=== PATIENT | male | born 1940 | race Caucasian/White ===

== ENCOUNTER → 2020-10-28 14:55 | Outpatient (ROUT) | payer MEDICARE, SELFPAY ==
[2020-10-28 15:03] LABS: Hematocrit 45.2 % (41-53); Hemoglobin 15.1 g/dL (13.5-17.5); Mean Corpuscular HGB Conc 33.3 % (30-36); Mean Corpuscular Hemoglobin 31.4 PG (26-34); Mean Corpuscular Volume 94.2 fL (80-100); Platelet Count 147 X10^3/uL (150-400); Red Blood Cell Count 4.79 X10^6/uL (4.5-5.9); Red Cell Distribution Width 14.3 % (11.6-14.8); White Blood Cell Count 5.8 X10^3/uL (4.5-11.0)
[2020-10-28 15:17] LABS: Alanine Aminotransferase 33 IU/L (<50); Albumin 3.9 g/dL (3.5-5.0); Albumin Globulin Ratio 1.3 (1.0-2.8); Alkaline Phosphatase 66 U/L (38-126); Aspartate Aminotransferase 40 IU/L (17-59); BUN Creatinine Ratio 27.3 (6-22); Bilirubin Total 0.6 mg/dL (0.2-1.3); Blood Urea Nitrogen 27 mg/dL (9-20); Calcium 9.3 mg/dL (8.4-10.2); Carbon Dioxide 33 mmol/L (22-32); Chloride 102 mmol/L (98-107); Estimated Glomerular Filt Rate > 60.0 mL/min (>60); Glucose 85 mg/dL (80-110); HEMOLYSIS < 15 (0-50); Potassium 4.9 mmol/L (3.4-5.1); Sodium 137 mmol/L (137-145); Total Protein 6.9 g/dL (6.3-8.2)
[2020-10-28 15:39] LABS: Creatinine Urine Random 96.3 mg/dL
[2020-10-28 16:03] LABS: Microalbumi Creatinin Ratio Ur 315.6 ug/mg CR (<30); Microalbumin Urine Random 30.4 mg/dL (0-1.6)
[2020-10-28 16:06] LABS: Vitamin B12 > 1000 pg/mL (239-931)
[2020-10-28 16:20] LABS: TSH w/ Reflex to FT4 0.65 uIU/mL (0.47-4.68)
[2020-10-28 17:09] LABS: Neutrophils Absolute Manual 3074 /uL (3000-5900); RBC Morphology Normal Morphology; Total Cells Counted 100
[2020-10-30 10:46] LABS: Immunoglobulin A, Serum 268 mg/dL (61-437); Immunoglobulin G,Serum 1131 mg/dL (603-1613); Immunoglobulin M, Serum 64 mg/dL (15-143)
[2020-10-30 15:08] LABS: Albumin 3.6 g/dL (2.9-4.4); Alpha 1 Globulin 0.2 g/dL (0.0-0.4); Alpha 2 Globulin 0.8 g/dL (0.4-1.0); Beta 1 Globulin 0.9 g/dL (0.7-1.3); Gamma Globulin 1.3 g/dL (0.4-1.8); Protein, Total 6.8 g/dL (6.0-8.5)
== END ==
PROVIDERS: Family Provider Family Medicine; PCP Family Medicine; Visit Provider Internal Medicine
DX: G62.9 Polyneuropathy, unspecified (principal); K59.00 Constipation, unspecified
CPT/HCPCS: 80053; 82043; 82570; 82607; 82784; 84155; 84165; 84443; 85025; 86334

== ENCOUNTER → 2022-04-26 15:41 | Outpatient (CLI) | payer MEDICARE, SELFPAY ==
--- NOTE | 2022-04-26 15:48 | DI.RAD.S_ITS ---
PROCEDURE: XR FINGER LT MIN 2V INDICATIONS: PAIN TECHNIQUE: AP hand, 2 views of the 3rd finger(s) acquired. COMPARISON: None. FINDINGS: Bones: No fractures or dislocations. No suspicious bony lesions. Soft tissues: No suspicious soft tissue calcifications. IMPRESSION: No acute osseous abnormalities. If clinical symptoms persist or clinical suspicion for pathology is high, a repeat examination in 7-10 days, or advanced imaging such as CT or MRI is suggested for further evaluation. Dictated by: Prateek Oliveros M.D. on 04/26/2022 at 16:37 Approved by: Prateek Oliveros M.D. on 04/26/2022 at 16:40
== END ==
PROVIDERS: Family Provider Family Medicine; PCP Internal Medicine; Referring Provider Internal Medicine; Visit Provider Internal Medicine
DX: M79.645 Pain in left finger(s) (principal)
CPT/HCPCS: 73140

== ENCOUNTER 2023-08-14 09:07 | Observation (INO) | payer MEDICARE, SELFPAY ==
[2023-08-14] VITALS (30 sets, daily range): BP systolic 138–190; BP diastolic 67–104; PULSE 54–83; RESP 15–25; TEMP 36.1–37.1; O2SAT 94–99; BMI 23.6; BMI 24.0
--- NOTE | 2023-08-14 09:27 | DI.RAD.S_ITS ---
PROCEDURE: XR CHEST 1V INDICATIONS: COUGH/L SIDED PAIN TECHNIQUE: One view of the chest was acquired. COMPARISON: None. FINDINGS: Surgical changes and devices: None. Lungs and pleura: Small to moderate left pleural effusion with adjacent atelectasis versus consolidation. The right lung is clear. Mediastinum: Mediastinal contours appear normal. Heart size is normal. Bones and chest wall: No suspicious bony lesions. Overlying soft tissues appear unremarkable. IMPRESSION: Small to moderate left pleural effusion with adjacent atelectasis versus consolidation. The right lung is clear. Dictated by: Demario Hussein M.D. on 08/14/2023 at 10:01 Approved by: Demario Hussein M.D. on 08/14/2023 at 10:01
--- NOTE | 2023-08-14 09:29 | ED.URI ---
HPI - URI/Sore Throat General Chief Complaint: Upper Respiratory Symptoms Stated Complaint: per pt pneumonia t-7, not getting better Time Seen by Provider: 08/14/23 09:11 History of Present Illness HPI Narrative: 83-year-old male with history of atrial fibrillation status post Watchman procedure presents by private vehicle from home for left-sided chest pain and nonproductive cough. Patient states that he was diagnosed with pneumonia 1 week ago at the walk-in clinic. He was referred to the ER for a chest x-ray, however he did not want to drive to the ER and instead just took his antibiotics. He states that initially the antibiotics helped with his pain and cough, however they gradually returned and now the cough is persistent, particularly at night. He can not even sleep because of the coughing and is presenting today for repeat evaluation. Related Data Home Medications Medication Instructions Recorded Confirmed ascorbate calcium (vitamin C) PO 08/11/23 08/11/23 [Sirisha-C] aspirin 81 mg chewable tablet 81 mg PO DAILY 08/11/23 08/11/23 [id number] PO 08/11/23 08/11/23 cholecalciferol (vitamin D3) 25 25 mcg PO DAILY 08/11/23 08/11/23 mcg (1,000 unit) capsule clonidine HCl 0.1 mg tablet 0.1 mg PO BID 08/11/23 08/11/23 doxycycline hyclate 100 mg capsule 100 mg PO BID 08/11/23 08/11/23 indapamide 1.25 mg tablet 1.25 mg PO DAILY 08/11/23 08/11/23 magnesium 200 mg tablet 200 mg PO DAILY 08/11/23 08/11/23 multivitamin 1 tab PO DAILY 08/11/23 08/11/23 vitamin B complex 1 tab PO DAILY 08/11/23 08/11/23 Allergies Allergy/AdvReac Type Severity Reaction Status Date / Time hydrochlorothiazide AdvReac Mild Rash Verified 08/11/23 11:18 Review of Systems Review of Systems Narrative: CONSTITUTIONAL- Denies: fever, chills, fatigue HEENT- Denies: sore throat, nosebleed, vision changes RESPIRATORY-reports: Cough Denies: shortness of breath, wheezing CARDIAC-reports: Left-sided pleuritic pain Denies: edema, orthopnea GI- Denies: abdominal pain, nausea, vomiting, constipation, diarrhea - Denies: frequency, dysuria, hematuria, flank pain MSK- Denies: extremity pain, extremity swelling, joint pain, joint swelling SKIN- Denies: rash, itching, burn, swelling NEUROLOGICAL- Denies: headache, numbness, weakness, dizziness PSYCHIATRIC- Denies: anxiety, depression, suicidal ideation, homicidal ideation Patient History Medical History BPH (benign prostatic hyperplasia) Chronic atrial fibrillation Hypertension Pneumonia Surgical History Status post recent transurethral resection of prostate Exam Initial Vital Signs Initial Vital Signs: Vital Signs Pulse Rate 71 08/14/23 09:19 Blood Pressure 166/80 H 08/14/23 09:19 Pulse Oximetry 96 08/14/23 09:19 Const: Awake, alert, no acute distress, nontoxic appearing Eyes: PERRL, EOMI, conjunctiva normal ENT: Atraumatic, dentition normal, mucous membranes moist Cardiac: regular rate, regular rhythm RESP: unlabored, decreased breath sounds left lower lobe GI: Atraumatic, soft, nontender, nondistended, no rebound, no guarding MSK: Atraumatic, full range of motion, pulses equal Skin: Warm, Dry, intact, no rashes Neuro: AO x3, CN II-XII grossly intact, moves all extremities Psych: affect normal, mood normal, not suicidal, not homicidal Course Course Course Narrative: Well-appearing gentleman with persistent cough and left-sided pain despite 1 week antibiotics for pneumonia. Vital signs are reviewed, unremarkable, patient does have decreased breath sounds on the right-hand side. We will obtain labs and chest x-ray imaging. Orders Ordered: ED Orders 08/14/23 09:27 Chest [XR chest 1V] Stat 08/14/23 09:35 CBC Auto Diff [Complete Blood Count AUTO DIFF] Stat CMP [Comprehensive Metabolic Panel] Stat Trop I [Troponin I] Stat 08/14/23 09:46 EKG-12 Lead Stat 08/14/23 09:51 CT angio chest PE protocol Stat 08/14/23 10:07 Respiratory Panel (Film Array) Stat Acetaminophen (Acetaminophen 325 Mg Tablet) 650 mg PO Q6H PRN PRN Reason: Fever/Mild Pain (1-3) Benzonatate (Benzonatate 100 Mg Capsule) 100 mg PO TID PRN PRN Reason: Cough Heparin Sodium/Dextrose (Heparin Drip) 25,000 unit in 500 mls @ 26.127 mls/hr IV CONT KALYN; Protocol Melatonin (Melatonin 3 Mg Tablet) 6 mg PO BEDTIME PRN PRN Reason: Insomnia Naloxone HCl (Naloxone 0.4 Mg/Ml Vial) 0.2 mg IV Q2MIN PRN PRN Reason: Opiate Reversal Polyethylene Glycol (Polyethylene Glycol 3350 17 Gm Powd.Pack) 17 gm PO DAILY PRN PRN Reason: Constipation Sennosides (Sennosides 8.6 Mg Tablet) 8.6 mg PO BID PRN PRN Reason: Constipation Discontinued Medications Ceftriaxone Sodium 2,000 mg/ (Sodium Chloride) 100 mls @ 200 mls/hr IV NOW ONE Stop: 08/14/23 11:18 Last Admin: 08/14/23 11:30 Dose: 200 mls/hr Documented By: NIMA Azithromycin 500 mg/ Dextrose 250 mls @ 250 mls/hr IV NOW ONE Stop: 08/14/23 11:18 Last Admin: 08/14/23 12:18 Dose: 250 mls/hr Documented By: NIMA Reevaluation(s) Reevaluation #1: Laboratory work is reviewed, no significant abnormalities. Chest x-ray shows underlying infiltrate with pleural effusion. Patient denies history of congestive heart failure, he does not take any Lasix or other diuretics. We will order CT angio for better and further assessment. Reevaluation #2: CT angio is concerning for moderate left-sided pleural effusion with left lower lobe segmental and subsegmental pulmonary emboli. Given patient's age and risk factors he is at least moderate risk for adverse reaction. Started on heparin, we will give IV antibiotics, will admit for further treatment. Vital Signs Vital signs: Vital Signs - 8 hr 08/14/23 09:27 08/14/23 09:19 08/14/23 09:19 Temperature 98.7 F Pulse Rate 69 71 Respiratory Rate 18 Blood Pressure 166/80 H 166/80 H Pulse Oximetry 97 96 Oxygen Delivery Method Room Air 08/14/23 09:30 08/14/23 09:30 08/14/23 09:53 Temperature Pulse Rate 63 63 Respiratory Rate 22 Blood Pressure 149/85 H Pulse Oximetry 98 97 Oxygen Delivery Method 08/14/23 09:53 08/14/23 10:00 08/14/23 10:00 Temperature Pulse Rate 63 Respiratory Rate 21 Blood Pressure 146/70 H 141/81 H Pulse Oximetry 97 Oxygen Delivery Method 08/14/23 10:16 08/14/23 10:16 08/14/23 10:30 Temperature Pulse Rate 63 Respiratory Rate 22 Blood Pressure 145/70 H 155/71 H Pulse Oximetry 96 Oxygen Delivery Method 08/14/23 10:30 08/14/23 10:46 08/14/23 10:46 Temperature Pulse Rate 66 62 Respiratory Rate 18 20 Blood Pressure 175/76 H Pulse Oximetry 96 99 Oxygen Delivery Method 08/14/23 11:00 08/14/23 11:00 08/14/23 11:15 Temperature Pulse Rate 63 Respiratory Rate 20 Blood Pressure 138/87 153/85 H Pulse Oximetry 98 Oxygen Delivery Method 08/14/23 11:15 Temperature Pulse Rate 62 Respiratory Rate 25 H Blood Pressure Pulse Oximetry 98 Oxygen Delivery Method MDM - URI/Sore Throat Lab Data 08/14/23 09:35 08/14/23 09:35 Labs: Lab Results 08/14/23 08/14/23 08/14/23 Range/Units 09:35 09:35 09:35 WBC 7.1 (4.5-11.0) X10^3/uL RBC 3.94 L (4.5-5.9) X10^6/uL Hgb 12.1 L (13.5-17.5) g/dL Hct 35.9 L (41-53) % MCV 91.1 (80-100) fL MCH 30.8 (26-34) PG MCHC 33.8 (30-36) % RDW 13.9 (11.6-14.8) % Plt Count 200 (150-400) X10^3/uL Neut % (Auto) 59.1 (50-75) % Lymph % (Auto) 24.2 L (25-40) % [place] % (Auto) 14.3 H (3-14) % Eos % (Auto) 2.0 (2-4) % Baso % (Auto) 0.4 (0-2) % Neut # (Auto) 4200 (4330-8854) /uL Lymph # (Auto) 1700 (1071-3661) /uL [place] # (Auto) 1000 H (0-900) /uL Eos # (Auto) 100 (0-450) /uL Baso # (Auto) 0 (0-100) /uL APTT (26-36) SECONDS Sodium 133 L (137-145) mmol/L Potassium 4.7 (3.4-5.1) mmol/L Chloride 99 (98-107) mmol/L Carbon Dioxide 30 (22-32) mmol/L BUN 24 H (9-20) mg/dL Creatinine 1.12 (0.66-1.25) mg/dL Estimated GFR > 60 (>60) mL/min BUN/Creatinine Ratio 21.4 (6-22) Glucose 99 (80-110) mg/dL Calcium 9.0 (8.4-10.2) mg/dL Magnesium 2.1 (1.6-2.3) mg/dL Total Bilirubin 0.6 (0.2-1.3) mg/dL AST 35 (17-59) IU/L ALT 44 (<50) IU/L Alkaline Phosphatase 73 (38-126) U/L Troponin I < 0.012 (0.01-0.034) ng/mL Total Protein 6.5 (6.3-8.2) g/dL Albumin 3.2 L (3.5-5.0) g/dL Globulin 3.3 (1.7-4.1) g/dL Albumin/Globulin Ratio 1.0 (1.0-2.8) Chlamy pneumoniae PCR (Not Detect) Adenovirus (PCR) (Not Detect) B. pertussis DNA (PCR) (Not Detecte) B.parapertussis DNA PCR (Not Detecte) Coronavirus OC43 (PCR) (Not Detect) Coronavirus HKU1 (PCR) (Not Detect) Coronavirus 229E (PCR) (Not Detect) SARS-CoV-2 (PCR) (Not Detecte) Coronavirus NL63 (PCR) (Not Detect) Human Metapneumovir PCR (Not Detect) Influenza Type A (PCR) (Not Detect) Influenza Type B (PCR) (Not Detect) M. pneumoniae (PCR) (Not Detect) Parainfluenza 1 (PCR) (Not Detect) Parainfluenza 2 (PCR) (Not Detect) Parainfluenza 3 (PCR) (Not Detect) Parainfluenza 4 (PCR) (Not Detect) RSV (PCR) (Not Detect) Entero/Rhino (PCR) (Not Detect) 08/14/23 08/14/23 Range/Units 09:35 10:07 WBC (4.5-11.0) X10^3/uL RBC (4.5-5.9) X10^6/uL Hgb (13.5-17.5) g/dL Hct (41-53) % MCV (80-100) fL MCH (26-34) PG MCHC (30-36) % RDW (11.6-14.8) % Plt Count (150-400) X10^3/uL Neut % (Auto) (50-75) % Lymph % (Auto) (25-40) % [place] % (Auto) (3-14) % Eos % (Auto) (2-4) % Baso % (Auto) (0-2) % Neut # (Auto) (4745-1009) /uL Lymph # (Auto) (7618-6393) /uL [place] # (Auto) (0-900) /uL Eos # (Auto) (0-450) /uL Baso # (Auto) (0-100) /uL APTT 28 (26-36) SECONDS Sodium (137-145) mmol/L Potassium (3.4-5.1) mmol/L Chloride (98-107) mmol/L Carbon Dioxide (22-32) mmol/L BUN (9-20) mg/dL Creatinine (0.66-1.25) mg/dL Estimated GFR (>60) mL/min BUN/Creatinine Ratio (6-22) Glucose (80-110) mg/dL Calcium (8.4-10.2) mg/dL Magnesium (1.6-2.3) mg/dL Total Bilirubin (0.2-1.3) mg/dL AST (17-59) IU/L ALT (<50) IU/L Alkaline Phosphatase (38-126) U/L Troponin I (0.01-0.034) ng/mL Total Protein (6.3-8.2) g/dL Albumin (3.5-5.0) g/dL Globulin (1.7-4.1) g/dL Albumin/Globulin Ratio (1.0-2.8) Chlamy pneumoniae PCR Not detected (Not Detect) Adenovirus (PCR) Not detected (Not Detect) B. pertussis DNA (PCR) Not detected (Not Detecte) B.parapertussis DNA PCR Not detected (Not Detecte) Coronavirus OC43 (PCR) Not detected (Not Detect) Coronavirus HKU1 (PCR) Not detected (Not Detect) Coronavirus 229E (PCR) Not detected (Not Detect) SARS-CoV-2 (PCR) Not detected (Not Detecte) Coronavirus NL63 (PCR) Not detected (Not Detect) Human Metapneumovir PCR Not detected (Not Detect) Influenza Type A (PCR) Not detected (Not Detect) Influenza Type B (PCR) Not detected (Not Detect) M. pneumoniae (PCR) Not detected (Not Detect) Parainfluenza 1 (PCR) Not detected (Not Detect) Parainfluenza 2 (PCR) Not detected (Not Detect) Parainfluenza 3 (PCR) Not detected (Not Detect) Parainfluenza 4 (PCR) Not detected (Not Detect) RSV (PCR) Not detected (Not Detect) Entero/Rhino (PCR) Not detected (Not Detect) ECG Data Interpretation: Atrial fibrillation at a rate of 69 beats per minute. Normal axis, no ST T wave changes, no STEMI Critical Care Time Critical Care Time Critical Care Time: Yes Total Critical Care Time: 32 Attestation: Pulmonary embolism requiring heparin and admission. Pneumonia requiring IV antibiotics Discharge Plan Departure Patient Disposition: Admitted As Inpatient Clinical Impression: Pneumonia, Chronic atrial fibrillation, Pulmonary embolism, Pleural effusion Admit Date/Time: 08/14/23 11:32 Admit Provider: Juma Adams
[2023-08-14 09:51] LABS: Add Manual Diff / Slide Review NO; Basophils Absolute Auto 0 /uL (0-100); Basophils Percent Auto 0.4 % (0-2); Eosinophils Absolute Auto 100 /uL (0-450); Hematocrit 35.9 % (41-53); Hemoglobin 12.1 g/dL (13.5-17.5); Lymphocytes Absolute Auto 1700 /uL (1100-4500); Lymphocytes Percent Auto 24.2 % (25-40); Mean Corpuscular HGB Conc 33.8 % (30-36); Mean Corpuscular Hemoglobin 30.8 PG (26-34); Mean Corpuscular Volume 91.1 fL (80-100); Monocytes Absolute Auto 1000 /uL (0-900); Monocytes Percent Auto 14.3 % (3-14); Neutrophils Absolute Auto 4200 /uL (1500-7000); Neutrophils Percent Auto 59.1 % (50-75); Platelet Count 200 X10^3/uL (150-400); Red Blood Cell Count 3.94 X10^6/uL (4.5-5.9); Red Cell Distribution Width 13.9 % (11.6-14.8); White Blood Cell Count 7.1 X10^3/uL (4.5-11.0)
--- NOTE | 2023-08-14 09:51 | DI.CT.S_ITS ---
PROCEDURE: CT ANGIO CHEST PE PROTOCOL INDICATIONS: PLEURITIC PAIN, ABNORMAL CXR TECHNIQUE: After the administration of intravenous contrast, 2 mm thick sections acquired from the pulmonary apices to the posterior costophrenic angles. 3-dimensional maximum intensity projection (MIP) coronal and sagittal reformats were then acquired through the thorax. For radiation dose reduction, the following was used: automated exposure control, adjustment of mA and/or kV according to patient size. COMPARISON: None. FINDINGS: Image quality: Excellent. Pulmonary arteries: Pulmonary arteries are normal in size. There is a filling defect in a left lower lobe segmental branch (5/74) extending into the subsegmental branches concerning for pulmonary embolism.. Lungs and pleura: Moderate left pleural effusion with adjacent atelectasis. Ground-glass and consolidative opacities within the left lower lobe and posterior left upper lobe. Scattered sub 2 mm pulmonary micro nodules. Scattered calcified granulomas. Central and peripheral airways are patent. Mediastinum: Heart size is mildly enlarged, with trace pericardial effusion. Mitral valve replacement. Moderate left anterior descending coronary artery calcifications. No mediastinal or hilar adenopathy. Thoracic aorta is normal in caliber and enhancement. Atherosclerotic vascular calcifications. Esophagus is normal in caliber, without hiatal hernia. Bones and chest wall: No suspicious bony lesions. Ribs and thoracic spine appear intact throughout. Postsurgical changes in the right scapula. Degenerative changes of the spine. Decreased osseous mineralization. Bilateral gynecomastia. Thyroid gland is unremarkable. No axillary or supraclavicular adenopathy. Abdomen: Subcentimeter hypodensity in the right hepatic lobe is too small technique characterize and favored to represent a simple cyst. Otherwise, visualized upper abdominal solid organs appear normal in the early arterial phase of enhancement. IMPRESSION: 1. Filling defect within a left lower lobe segmental and subsegmental pulmonary arteries, concerning for pulmonary embolism. 2. Moderate left pleural effusion with associated ground-glass and consolidative opacities, consistent with pneumonia. Dictated by: Demario Hussein M.D. on 08/14/2023 at 10:52 Approved by: Demario Hussein M.D. on 08/14/2023 at 11:05
[2023-08-14 10:02] LABS: Alanine Aminotransferase 44 IU/L (<50); Albumin 3.2 g/dL (3.5-5.0); Alkaline Phosphatase 73 U/L (38-126); Aspartate Aminotransferase 35 IU/L (17-59); BUN Creatinine Ratio 21.4 (6-22); Bilirubin Total 0.6 mg/dL (0.2-1.3); Blood Urea Nitrogen 24 mg/dL (9-20); Carbon Dioxide 30 mmol/L (22-32); Chloride 99 mmol/L (98-107); Estimated Glomerular Filt Rate > 60 mL/min (>60); Globulin 3.3 g/dL (1.7-4.1); Glucose 99 mg/dL (80-110); HEMOLYSIS < 15 (0-50); Potassium 4.7 mmol/L (3.4-5.1); Sodium 133 mmol/L (137-145); Total Protein 6.5 g/dL (6.3-8.2)
[2023-08-14 10:13] LABS: Troponin I < 0.012 ng/mL (0.01-0.034)
[2023-08-14 11:00] LABS: Adenovirus Not Detected (Not Detect); B. parapertussis Not Detected (Not Detecte); Bordetella pertussis Not Detected (Not Detecte); Chlamydophila pneumoniae Not Detected (Not Detect); Coronavirus 229E Not Detected (Not Detect); Coronavirus HKU1 Not Detected (Not Detect); Coronavirus NL 63 Not Detected (Not Detect); Coronavirus OC43 Not Detected (Not Detect); Human Metapneumovirus Not Detected (Not Detect); Human Rhinovirus/Enterovirus Not Detected (Not Detect); Influenza A Not Detected (Not Detect); Influenza B Not Detected (Not Detect); Mycoplasma pneumoniae Not Detected (Not Detect); Parainfluenza Virus 1 Not Detected (Not Detect); Parainfluenza Virus 2 Not Detected (Not Detect); Parainfluenza Virus 3 Not Detected (Not Detect); Parainfluenza Virus 4 Not Detected (Not Detect); Respiratory Syncytial Virus Not Detected (Not Detect); SARS- CoV-2 Not Detected (Not Detecte)
[2023-08-14] MEDS: cefTRIAXone 2,000 MG in SODIUM CHLORIDE 0.9% 100 ML 200 MG IV (11:30)
--- NOTE | 2023-08-14 11:48 | DI.ECHO.S_ITS ---
[facility]---------+ [facility] +---------+ : : [address] : : : : [id number] : : : : Phone: [phone] Echocardiogram Report + + :Name: BERT GARY Study Date: 08/14/2023 Height: 69 in : :[facility] ReadingLocation: [place] Weight: 160 lb : : Gender: Male BSA: 1.9 m2 : :: 1940 Age: 83 yrs BP: 163/80 mmHg: :Reason For Study: PE, Look for right heart strain : :Ordering Physician: Bryan, : :Walt Performed By: Chanell Marcos : :Referring: WALT SETHI A : + + Interpretation Summary The ejection fraction is estimated to be 45-50%. Diastolic function could not be accurately assessed due to atrial fibrillation. The left atrium is severely dilated. The right ventricle is normal size. Right ventricular systolic function is mildly reduced. The right atrium is mild to moderately dilated. There is moderate mitral regurgitation. There is mild aortic regurgitation. There is moderate tricuspid regurgitation. The right ventricular systolic pressure is estimated to be at least 54 mmHg based on an estimated right atrial pressure of 8 mm Hg. There is a left-sided pleural effusion. Procedure: A two-dimensional transthoracic echocardiogram with color flow and Doppler was performed. The study quality was technically good. There is no prior echocardiogram noted for this patient. The patient was in atrial fibrillation with heart rates between 49-68 bpm during the exam. Left Ventricle: The left ventricle is normal in size. A false chord is noted (normal variant). There is no thrombus. Left ventricular systolic function is mildly reduced. The ejection fraction is estimated to be 45-50%. Diastolic function could not be accurately assessed due to atrial fibrillation. Right Ventricle: The right ventricle is normal size. Right ventricular systolic function is mildly reduced. Atria: The left atrium is severely dilated. The right atrium is mild to moderately dilated. There is no Doppler evidence for an interatrial shunt. Mitral Valve: The mitral valve leaflets appear mildly thickened, but open well. There is mild mitral annular calcification. There is moderate mitral regurgitation. There is blunted systolic flow noted in the pulmonary vein. Aortic Valve: The aortic valve is trileaflet. The aortic valve opens well. There is mild aortic valve sclerosis. There is no aortic valve stenosis. There is mild aortic regurgitation. Tricuspid Valve: The tricuspid valve leaflets are thickened and/or calcified, but open well. There is moderate tricuspid regurgitation. The regurgitant jet is eccentrically directed. The right ventricular systolic pressure is estimated to be at least 54 mmHg based on an estimated right atrial pressure of 8 mm Hg. Pulmonic Valve: The pulmonic valve leaflets are thin and pliable; valve motion is normal. There is trace pulmonic regurgitation. Great Vessels: The aortic root is normal size. The ascending aorta is at the upper limits of normal in size. The aortic arch is normal in size. The pulmonary artery is normal size. The IVC is dilated (diameter is greater than 2.1 cm) yet it collapses greater than 50% with a sniff. This suggests a right atrial pressure of 8 mm Hg. Pericardium/ Pleura There is no pericardial effusion. There is a left-sided pleural effusion. MMode/2D Measurements & Calculations LVIDd: 4.5 cm LVOT diam: 2.1 cm LVIDs: 3.2 cm Ao root diam: 3.3 cm FS: 29.0 % asc Aorta Diam: 3.5 cm EPSS: 0.55 cm Ao Arch Diam (Prox Trans): 2.6 cm IVSd: 1.1 cm LVPWd: 1.1 cm LV frank. diameter/BSA (cm/m^2): 2.4 LV sys. diameter/BSA (cm/m^2): 1.7 LA A2 area: 34.9 cm2 RA long axis: 6.1 cm LA A4 area: 38.9 cm2 RA area: 20.7 cm2 LA length (vol): 8.3 cm RA vol: 60.1 ml LA vol: 138.5 ml RA : 32.0 ml/m2 LA vol index: 73.7 ml/m2 IVC diam: 2.2 cm TAPSE: 1.5 cm Doppler Measurements & Calculations Ao V2 max: 120.2 cm/sec LVOT Max Luke: 90.3 cm/sec Ao V2 mean: 88.6 cm/sec LV V1 max P.3 mmHg Ao max P.8 mmHg LV V1 VTI: 18.1 cm Ao mean P.4 mmHg BON(I,D): 2.7 cm2 Ao V2 VTI: 23.4 cm BON(V,D): 2.6 cm2 sev ratio: 0.77 BON indexed to BSA (cm^2/m^2): 1.4 AI P1/2t: 608.7 msec AI dec slope: 215.6 cm/sec2 MV E max luke: 86.3 cm/sec TR max luke: 337.3 cm/sec Med Peak E' Luke: 6.4 cm/sec TR max P.5 mmHg E/E' med: 13.5 PA V2 max: 53.8 cm/sec Lat Peak E' Luke: 11.3 cm/sec PA V2 mean: 40.1 cm/sec E/E' lat: 7.6 PA mean P.70 mmHg E/e' average: 10.6 PA Accel Time: 0.07 sec MR ERO: 0.05 cm2 MR VTI: 208.2 cm MR PISA: 0.82 cm2 MR flow rate: 30.2 cm3/sec MR PISA radius: 0.36 cm SV(LVOT): 63.5 ml Reading Physician:04:46 PM
[2023-08-14 11:59] LABS: PTT Partial Thromboplastin Tim 28 SECONDS (26-36)
[2023-08-14 12:03] LABS: Magnesium 2.1 mg/dL (1.6-2.3)
[2023-08-14] MEDS: AZITHROMYCIN 500 MG in DEXTROSE 5% IN WATER 250 ML 250 MG IV (12:18)
[2023-08-14 12:21] LABS: Procalcitonin 0.11 ng/mL (<0.5)
--- NOTE | 2023-08-14 12:23 | PC.NURSE ---
PTT order added at 1150, lab added PTT test onto blood draw from 0935. PTT resulted at 1220. sheet metal technician is at the bedside. Holding heparin administration until echo is completed, per ED physician.
--- NOTE | 2023-08-14 13:26 | PC.NURSE ---
avionics systems technician in pt room [id number]. Report given face to face w/ Desiree OWUSU.
[2023-08-14 13:37] LABS: Appearance Urine UA CLEAR; Bilirubin Urine UA NEGATIVE (NEGATIVE); Color Urine UA YELLOW; Glucose Urine UA NEGATIVE (Negative); Ketones Urine UA NEGATIVE (NEGATIVE); Leukocyte Esterase Urine UA NEGATIVE (NEGATIVE); Nitrite Urine UA NEGATIVE (Negative); Occult Blood Urine UA NEGATIVE (Negative); Protein Urine UA NEGATIVE (Negative); Urobilinogen Urine UA 0.2 E.U./dL (0.2); pH Urine UA 7.5 (4.5-8.0)
[2023-08-14 13:50] LABS: Bacteria Urine None Seen; Culture Indicated Urine Cult Not Indicated; RBC Urine None Seen (0-5/HPF); Squamous Epithelial Cell Urine None Seen (0-5/HPF); Urine Comments N; WBC Urine None Seen (0-5/HPF)
--- NOTE | 2023-08-14 13:52 | P.HP_ITS ---
History of Present Illness History of Present Illness Date Patient Seen: 08/14/23 Time Patient Seen: 19:02 Chief complaint: per pt pneumonia t-7, not getting better Narrative: César Carroll is a 83yo M with PMH of A-fib s/p Watchman not on anticoag, TIA, HTN, and BPH who presents with chest pain and cough. Patient initially presented to PCP with these symptoms plus a 101F fever and put on doxycycline after CXR showed pneumonia. Continued to worsen to came to the ED where he was diagnosed with PE. He states he has never had a PE before. Was previously on Xarelto for A-fib but had easy bruising and bleeding so had Watchman device placed. He denies any recent long trips or trauma to his legs. He notes his brother once had a DVT. He has never been worked up for thrombophilia. He is very active and still works outside with ladders, golfs and goes on frequent walks. He denies hemoptysis, syncope, abd pain or diarrhea. [facility] Medical History BPH (benign prostatic hyperplasia) Chronic atrial fibrillation Hypertension Pneumonia Surgical History Status post recent transurethral resection of prostate Social History household members: spouse Smoking Status: Former smoker alcohol intake: current Meds Home Medications and Allergies Home Medications Medication Instructions Recorded Confirmed Type ascorbate calcium (vitamin C) PO 08/11/23 08/11/23 History [Sirisha-C] aspirin 81 mg chewable tablet 81 mg PO DAILY 08/11/23 08/11/23 History drwklzc-[id number]-[id number] PO 08/11/23 08/11/23 History cholecalciferol (vitamin D3) 25 25 mcg PO DAILY 08/11/23 08/11/23 History mcg (1,000 unit) capsule clonidine HCl 0.1 mg tablet 0.1 mg PO BID 08/11/23 08/11/23 History doxycycline hyclate 100 mg capsule 100 mg PO BID 08/11/23 08/11/23 History indapamide 1.25 mg tablet 1.25 mg PO DAILY 08/11/23 08/11/23 History magnesium 200 mg tablet 200 mg PO DAILY 08/11/23 08/11/23 History multivitamin 1 tab PO DAILY 08/11/23 08/11/23 History vitamin B complex 1 tab PO DAILY 08/11/23 08/11/23 History Allergies Allergy/AdvReac Type Severity Reaction Status Date / Time hydrochlorothiazide AdvReac Mild Rash Verified 08/14/23 16:33 Review of Systems Review of Systems Narrative: All other systems reviewed with the patient and are negative unless otherwise stated. Exam Vital Signs (past 8 hours): - 08/14/23 09:27 08/14/23 09:19 08/14/23 09:19 Temperature 98.7 F Pulse Rate 69 71 Respiratory Rate 18 Blood Pressure 166/80 H 166/80 H Blood Pressure [Right Arm] Pulse Oximetry 97 96 Oxygen Delivery Method Room Air 08/14/23 09:30 08/14/23 09:30 08/14/23 09:53 Temperature Pulse Rate 63 63 Respiratory Rate 22 Blood Pressure 149/85 H Blood Pressure [Right Arm] Pulse Oximetry 98 97 Oxygen Delivery Method 08/14/23 09:53 08/14/23 10:00 08/14/23 10:00 Temperature Pulse Rate 63 Respiratory Rate 21 Blood Pressure 146/70 H 141/81 H Blood Pressure [Right Arm] Pulse Oximetry 97 Oxygen Delivery Method 08/14/23 10:16 08/14/23 10:16 08/14/23 10:30 Temperature Pulse Rate 63 Respiratory Rate 22 Blood Pressure 145/70 H 155/71 H Blood Pressure [Right Arm] Pulse Oximetry 96 Oxygen Delivery Method 08/14/23 10:30 08/14/23 10:46 08/14/23 10:46 Temperature Pulse Rate 66 62 Respiratory Rate 18 20 Blood Pressure 175/76 H Blood Pressure [Right Arm] Pulse Oximetry 96 99 Oxygen Delivery Method 08/14/23 11:00 08/14/23 11:00 08/14/23 11:15 Temperature Pulse Rate 63 Respiratory Rate 20 Blood Pressure 138/87 153/85 H Blood Pressure [Right Arm] Pulse Oximetry 98 Oxygen Delivery Method 08/14/23 11:15 08/14/23 12:33 08/14/23 11:59 Temperature Pulse Rate 62 66 64 Respiratory Rate 25 H 22 20 Blood Pressure 160/78 H Blood Pressure [Right Arm] 161/72 H Pulse Oximetry 98 98 98 Oxygen Delivery Method Room Air Room Air 08/14/23 12:00 08/14/23 12:04 08/14/23 12:04 Temperature Pulse Rate 68 61 Respiratory Rate 22 23 Blood Pressure 169/77 H Blood Pressure [Right Arm] Pulse Oximetry 98 98 Oxygen Delivery Method 08/14/23 12:15 08/14/23 12:15 08/14/23 12:19 Temperature Pulse Rate 59 L 60 Respiratory Rate 22 25 H Blood Pressure 163/80 H Blood Pressure [Right Arm] Pulse Oximetry 98 98 Oxygen Delivery Method 08/14/23 12:19 08/14/23 12:20 08/14/23 12:20 Temperature Pulse Rate 72 Respiratory Rate 24 Blood Pressure 190/87 H 168/83 H Blood Pressure [Right Arm] Pulse Oximetry 97 Oxygen Delivery Method 08/14/23 12:30 08/14/23 12:30 08/14/23 12:40 Temperature Pulse Rate 66 54 L Respiratory Rate 24 15 Blood Pressure 161/72 H Blood Pressure [Right Arm] Pulse Oximetry 96 97 Oxygen Delivery Method 08/14/23 12:40 08/14/23 12:50 08/14/23 12:50 Temperature Pulse Rate 64 Respiratory Rate 21 Blood Pressure 158/73 H 155/77 H Blood Pressure [Right Arm] Pulse Oximetry 98 Oxygen Delivery Method 08/14/23 13:00 08/14/23 13:00 08/14/23 13:10 Temperature Pulse Rate 67 72 Respiratory Rate 20 22 Blood Pressure 162/67 H Blood Pressure [Right Arm] Pulse Oximetry 96 98 Oxygen Delivery Method 08/14/23 13:10 Temperature Pulse Rate Respiratory Rate Blood Pressure 149/104 H Blood Pressure [Right Arm] Pulse Oximetry Oxygen Delivery Method Oxygen Delivery Method Room Air Narrative Exam Narrative: GEN: no acute distress, appears younger than stated age HEENT: moist mucous membranes, PERRL NECK: trachea midline, no JVD CV: regular rate and rhythm, no murmurs PULM: clear bilaterally ABD: soft, nontender, nondistended, no organomegaly EXT: warm and well perfused with no edema NEURO: awake, alert, oriented, no focal deficits Objective Labs 08/14/23 09:35 08/14/23 09:35 Labs: Laboratory Results - last 24 hr 08/14/23 08/14/23 08/14/23 09:35 09:35 09:35 WBC 7.1 RBC 3.94 L Hgb 12.1 L Hct 35.9 L MCV 91.1 MCH 30.8 MCHC 33.8 RDW 13.9 Plt Count 200 Neut % (Auto) 59.1 Lymph % (Auto) 24.2 L Bennett % (Auto) 14.3 H Eos % (Auto) 2.0 Baso % (Auto) 0.4 Neut # (Auto) 4200 Lymph # (Auto) 1700 Bennett # (Auto) 1000 H Eos # (Auto) 100 Baso # (Auto) 0 APTT Sodium 133 L Potassium 4.7 Chloride 99 Carbon Dioxide 30 BUN 24 H Creatinine 1.12 Estimated GFR > 60 BUN/Creatinine Ratio 21.4 Glucose 99 Calcium 9.0 Magnesium 2.1 Total Bilirubin 0.6 AST 35 ALT 44 Alkaline Phosphatase 73 Troponin I < 0.012 Total Protein 6.5 Albumin 3.2 L Globulin 3.3 Albumin/Globulin Ratio 1.0 Procalcitonin Urine Color Urine Appearance Urine pH Ur Specific Valier Urine Protein Urine Glucose (UA) Urine Ketones Urine Occult Blood Urine Nitrate Urine Bilirubin Urine Urobilinogen Ur Leukocyte Esterase Urine RBC Urine WBC Ur Squamous Epith Cells Urine Bacteria Ur Culture Indicated? Micro UA Comment Chlamy pneumoniae PCR Adenovirus (PCR) B. pertussis DNA (PCR) B.parapertussis DNA PCR Coronavirus OC43 (PCR) Coronavirus HKU1 (PCR) Coronavirus 229E (PCR) SARS-CoV-2 (PCR) Coronavirus NL63 (PCR) Human Metapneumovir PCR Influenza Type A (PCR) Influenza Type B (PCR) M. pneumoniae (PCR) Parainfluenza 1 (PCR) Parainfluenza 2 (PCR) Parainfluenza 3 (PCR) Parainfluenza 4 (PCR) RSV (PCR) Entero/Rhino (PCR) 08/14/23 08/14/23 08/14/23 09:35 09:35 10:07 WBC RBC Hgb Hct MCV MCH MCHC RDW Plt Count Neut % (Auto) Lymph % (Auto) Bennett % (Auto) Eos % (Auto) Baso % (Auto) Neut # (Auto) Lymph # (Auto) Bennett # (Auto) Eos # (Auto) Baso # (Auto) APTT 28 Sodium Potassium Chloride Carbon Dioxide BUN Creatinine Estimated GFR BUN/Creatinine Ratio Glucose Calcium Magnesium Total Bilirubin AST ALT Alkaline Phosphatase Troponin I Total Protein Albumin Globulin Albumin/Globulin Ratio Procalcitonin 0.11 Urine Color Urine Appearance Urine pH Ur Specific Val[place] Urine Protein Urine Glucose (UA) Urine Ketones Urine Occult Blood Urine Nitrate Urine Bilirubin Urine Urobilinogen Ur Leukocyte Esterase Urine RBC Urine WBC Ur Squamous Epith Cells Urine Bacteria Ur Culture Indicated? Micro UA Comment Chlamy pneumoniae PCR Not detected Adenovirus (PCR) Not detected B. pertussis DNA (PCR) Not detected B.parapertussis DNA PCR Not detected Coronavirus OC43 (PCR) Not detected Coronavirus HKU1 (PCR) Not detected Coronavirus 229E (PCR) Not detected SARS-CoV-2 (PCR) Not detected Coronavirus NL63 (PCR) Not detected Human Metapneumovir PCR Not detected Influenza Type A (PCR) Not detected Influenza Type B (PCR) Not detected M. pneumoniae (PCR) Not detected Parainfluenza 1 (PCR) Not detected Parainfluenza 2 (PCR) Not detected Parainfluenza 3 (PCR) Not detected Parainfluenza 4 (PCR) Not detected RSV (PCR) Not detected Entero/Rhino (PCR) Not detected 08/14/23 13:23 WBC RBC Hgb Hct MCV MCH MCHC RDW Plt Count Neut % (Auto) Lymph % (Auto) Bennett % (Auto) Eos % (Auto) Baso % (Auto) Neut # (Auto) Lymph # (Auto) Bennett # (Auto) Eos # (Auto) Baso # (Auto) APTT Sodium Potassium Chloride Carbon Dioxide BUN Creatinine Estimated GFR BUN/Creatinine Ratio Glucose Calcium Magnesium Total Bilirubin AST ALT Alkaline Phosphatase Troponin I Total Protein Albumin Globulin Albumin/Globulin Ratio Procalcitonin Urine Color Yellow Urine Appearance Clear Urine pH 7.5 Ur Specific Valier 1.010 Urine Protein Negative Urine Glucose (UA) Negative Urine Ketones Negative Urine Occult Blood Negative Urine Nitrate Negative Urine Bilirubin Negative Urine Urobilinogen 0.2 Ur Leukocyte Esterase Negative Urine RBC None seen Urine WBC None seen Ur Squamous Epith Cells None seen Urine Bacteria None seen Ur Culture Indicated? Cult not indicated Micro UA Comment N Chlamy pneumoniae PCR Adenovirus (PCR) B. pertussis DNA (PCR) B.parapertussis DNA PCR Coronavirus OC43 (PCR) Coronavirus HKU1 (PCR) Coronavirus 229E (PCR) SARS-CoV-2 (PCR) Coronavirus NL63 (PCR) Human Metapneumovir PCR Influenza Type A (PCR) Influenza Type B (PCR) M. pneumoniae (PCR) Parainfluenza 1 (PCR) Parainfluenza 2 (PCR) Parainfluenza 3 (PCR) Parainfluenza 4 (PCR) RSV (PCR) Entero/Rhino (PCR) Assessment & Plan Assessment & Plan narrative: # unprovoked pulmonary embolus -presented with chest pain and cough, CTPA with L-sided PE -PESI score mod risk (male + age) suggesting inpatient treatment and monitoring -start eliquis 10mg BID x7 days then 5mg BID likely indefinitely -check Factor V Leiden as patient's brother also had a DVT -obtain echo -tele # pneumonia with possible parapneumonic effusion -CXR and CT chest with L-sided infiltrates and pleural effusion, patient has cough and failed treatment with outpt doxy -procal 0.11 -rocephin plus azithro -tessalon perles PRN # HTN -continue home clonidine, hold indapimide as not on formulary Code status is full code. DVT prophylaxis with Eliquis. Proxy is spouse Parul. I have reviewed home meds and used all available resources to reconcile the home meds. Case discussed with ED physician/APC and patient will be admitted to the hospitalist service for further workup and management. This patient will be admitted as observation and will require less than 2 midnights of hospital time to treat PE and pneumonia.
[2023-08-14] MEDS: APIXABAN 5 MG TABLET 10 MG PO ×2 (14:48→23:01)
--- NOTE | 2023-08-14 18:35 | PC.NURSE ---
Pt arrived to the unit at 1400. Pt had cell phone, wallet, shoes, clothes with him. Pt also has bilateral hearing aides, glasses, and smart watch with him. Pt was oriented to the room, how to use the call the medellin, informed about shift change report done at the pt's bedside. All questions answered. Will monitor pt.
[2023-08-14] MEDS: cloNIDine 0.1 MG TABLET PO (21:34)
[2023-08-15 04:00] VITALS: O2SAT 98
[2023-08-15 04:40] VITALS: BP 140/73; PULSE 65; RESP 18; TEMP 37.1; O2SAT 98
[2023-08-15 05:45] LABS: Add Manual Diff / Slide Review NO; Basophils Absolute Auto 0 /uL (0-100); Basophils Percent Auto 0.3 % (0-2); Eosinophils Absolute Auto 200 /uL (0-450); Eosinophils Percent Auto 3.3 % (2-4); Hematocrit 37.5 % (41-53); Lymphocytes Absolute Auto 2000 /uL (1100-4500); Lymphocytes Percent Auto 27.8 % (25-40); Mean Corpuscular HGB Conc 34.5 % (30-36); Mean Corpuscular Hemoglobin 31.3 PG (26-34); Mean Corpuscular Volume 90.8 fL (80-100); Monocytes Absolute Auto 1000 /uL (0-900); Monocytes Percent Auto 14.3 % (3-14); Neutrophils Absolute Auto 4000 /uL (1500-7000); Neutrophils Percent Auto 54.3 % (50-75); Platelet Count 220 X10^3/uL (150-400); Red Blood Cell Count 4.14 X10^6/uL (4.5-5.9); Red Cell Distribution Width 13.7 % (11.6-14.8); White Blood Cell Count 7.3 X10^3/uL (4.5-11.0)
[2023-08-15 05:59] LABS: BUN Creatinine Ratio 20.4 (6-22); Blood Urea Nitrogen 23 mg/dL (9-20); Calcium 9.2 mg/dL (8.4-10.2); Carbon Dioxide 27 mmol/L (22-32); Chloride 101 mmol/L (98-107); Estimated Glomerular Filt Rate > 60 mL/min (>60); Glucose 98 mg/dL (80-110); HEMOLYSIS < 15 (0-50); Potassium 4.3 mmol/L (3.4-5.1); Sodium 134 mmol/L (137-145)
[2023-08-15 06:11] LABS: Troponin I < 0.012 ng/mL (0.01-0.034)
[2023-08-15 08:00] VITALS: BP 141/71; PULSE 85; RESP 18; TEMP 36.8; O2SAT 97
[2023-08-15] MEDS: APIXABAN 5 MG TABLET 10 MG PO (09:29)
[2023-08-15] MEDS: cloNIDine 0.1 MG TABLET PO (09:29)
[2023-08-15] MEDS: SODIUM CHLORIDE 0.9% FLUSH 10 ML IV (09:30)
[2023-08-15] MEDS: AZITHROMYCIN 250 MG TABLET 500 MG PO (09:30)
[2023-08-15] MEDS: cefTRIAXone 1,000 MG in SODIUM CHLORIDE 0.9% 100 ML 200 MG IV (09:49)
--- NOTE | 2023-08-15 10:29 | PM.DS.1 ---
History of Present Illness History of Present Illness Date Patient Seen: 08/15/23 Time Patient Seen: 10:30 Chief complaint: per pt pneumonia t-7, not getting better Narrative: César Carroll is a 83yo M with PMH of A-fib s/p Watchman not on anticoag, TIA, HTN, and BPH who presents with chest pain and cough. Patient initially presented to PCP with these symptoms plus a 101F fever and put on doxycycline after CXR showed pneumonia. Continued to worsen to came to the ED where he was diagnosed with PE. He states he has never had a PE before. Was previously on Xarelto for A-fib but had easy bruising and bleeding so had Watchman device placed. He denies any recent long trips or trauma to his legs. He notes his brother once had a DVT. He has never been worked up for thrombophilia. He is very active and still works outside with ladders, golfs and goes on frequent walks. He denies hemoptysis, syncope, abd pain or diarrhea. Discharge Providers Provider Date of admission: 08/14/23 11:32 Discharge Date: 08/16/23 Primary care physician: Armando Gay DO Discharge provider: Jaylon Dumont DO Summary Hospital Course Discharge Diagnosis: # unprovoked pulmonary embolus # bacterial pneumonia with possible parapneumonic effusion # HTN Hospital Course: This is an 83 year old male with PMH of A-fib s/p Watchman not on anticoag, TIA, HTN, and BPH who presented with chest pain and cough. He had been managed as an outpatient for possible pneumonia but did not improve. His CTA showed PE. Echocardiogram showed borderline LV function at 45%, with elevated R sided pressures and mildly reduced RV function as well. His symptoms improved with antibiotics and anticoagulation. He requested trial of dabigatran after previous experience with anticoagulation for A-fib. Factor V leiden was sent given unprovoked nature and a brother with blood clot as well, which is pending at discharge. He was discharged after improvement in his symptoms, he did not require supplemental oxygen therapy. Pleural effusion was not further evaluated at this time given improvement in symptoms and no respiratory failure. Outpatient follow up for repeat imaging is recommended after completion of antibiotics to see if residual effusion is still present. Time Spent with Patient Time spent: Greater than 30 minutes Exam Vital Signs (past 8 hours): - 08/15/23 04:00 08/15/23 04:40 08/15/23 08:00 Temperature 98.7 F 98.2 F Pulse Rate 65 85 Respiratory Rate 18 18 Blood Pressure 140/73 141/71 H Pulse Oximetry 98 98 97 Oxygen Delivery Method CPAP Oxygen Flow Rate 0 0 0 Oxygen Delivery Method CPAP Oxygen Flow Rate 0 Narrative Exam Narrative: GEN: no acute distress, appears younger than stated age HEENT: moist mucous membranes, PERRL NECK: trachea midline, no JVD CV: regular rate and rhythm, no murmurs PULM: clear bilaterally ABD: soft, nontender, nondistended, no organomegaly EXT: warm and well perfused with no edema NEURO: awake, alert, oriented, no focal deficits Objective Labs 08/15/23 05:20 08/15/23 05:20 Labs: Laboratory Results - last 24 hr 08/14/23 08/14/23 08/14/23 09:35 09:35 09:35 WBC RBC Hgb Hct MCV MCH MCHC RDW Plt Count Neut % (Auto) Lymph % (Auto) [place] % (Auto) Eos % (Auto) Baso % (Auto) Neut # (Auto) Lymph # (Auto) [place] # (Auto) Eos # (Auto) Baso # (Auto) APTT 28 Sodium Potassium Chloride Carbon Dioxide BUN Creatinine Estimated GFR BUN/Creatinine Ratio Glucose Calcium Magnesium 2.1 Troponin I Procalcitonin 0.11 Urine Color Urine Appearance Urine pH Ur Specific Amigo Urine Protein Urine Glucose (UA) Urine Ketones Urine Occult Blood Urine Nitrate Urine Bilirubin Urine Urobilinogen Ur Leukocyte Esterase Urine RBC Urine WBC Ur Squamous Epith Cells Urine Bacteria Ur Culture Indicated? Micro UA Comment Chlamy pneumoniae PCR Adenovirus (PCR) B. pertussis DNA (PCR) B.parapertussis DNA PCR Coronavirus OC43 (PCR) Coronavirus HKU1 (PCR) Coronavirus 229E (PCR) SARS-CoV-2 (PCR) Coronavirus NL63 (PCR) Human Metapneumovir PCR Influenza Type A (PCR) Influenza Type B (PCR) M. pneumoniae (PCR) Parainfluenza 1 (PCR) Parainfluenza 2 (PCR) Parainfluenza 3 (PCR) Parainfluenza 4 (PCR) RSV (PCR) Entero/Rhino (PCR) 08/14/23 08/14/23 08/15/23 10:07 13:23 05:20 WBC RBC Hgb Hct MCV MCH MCHC RDW Plt Count Neut % (Auto) Lymph % (Auto) [place] % (Auto) Eos % (Auto) Baso % (Auto) Neut # (Auto) Lymph # (Auto) [place] # (Auto) Eos # (Auto) Baso # (Auto) APTT Sodium Potassium Chloride Carbon Dioxide BUN Creatinine Estimated GFR BUN/Creatinine Ratio Glucose Calcium Magnesium Troponin I < 0.012 Procalcitonin Urine Color Yellow Urine Appearance Clear Urine pH 7.5 Ur Specific Amigo 1.010 Urine Protein Negative Urine Glucose (UA) Negative Urine Ketones Negative Urine Occult Blood Negative Urine Nitrate Negative Urine Bilirubin Negative Urine Urobilinogen 0.2 Ur Leukocyte Esterase Negative Urine RBC None seen Urine WBC None seen Ur Squamous Epith Cells None seen Urine Bacteria None seen Ur Culture Indicated? Cult not indicated Micro UA Comment N Chlamy pneumoniae PCR Not detected Adenovirus (PCR) Not detected B. pertussis DNA (PCR) Not detected B.parapertussis DNA PCR Not detected Coronavirus OC43 (PCR) Not detected Coronavirus HKU1 (PCR) Not detected Coronavirus 229E (PCR) Not detected SARS-CoV-2 (PCR) Not detected Coronavirus NL63 (PCR) Not detected Human Metapneumovir PCR Not detected Influenza Type A (PCR) Not detected Influenza Type B (PCR) Not detected M. pneumoniae (PCR) Not detected Parainfluenza 1 (PCR) Not detected Parainfluenza 2 (PCR) Not detected Parainfluenza 3 (PCR) Not detected Parainfluenza 4 (PCR) Not detected RSV (PCR) Not detected Entero/Rhino (PCR) Not detected 08/15/23 08/15/23 05:20 05:20 WBC 7.3 RBC 4.14 L Hgb 13.0 L Hct 37.5 L MCV 90.8 MCH 31.3 MCHC 34.5 RDW 13.7 Plt Count 220 Neut % (Auto) 54.3 Lymph % (Auto) 27.8 [place] % (Auto) 14.3 H Eos % (Auto) 3.3 Baso % (Auto) 0.3 Neut # (Auto) 4000 Lymph # (Auto) 2000 [place] # (Auto) 1000 H Eos # (Auto) 200 Baso # (Auto) 0 APTT Sodium 134 L Potassium 4.3 Chloride 101 Carbon Dioxide 27 BUN 23 H Creatinine 1.13 Estimated GFR > 60 BUN/Creatinine Ratio 20.4 Glucose 98 Calcium 9.2 Magnesium Troponin I Procalcitonin Urine Color Urine Appearance Urine pH Ur Specific Amigo Urine Protein Urine Glucose (UA) Urine Ketones Urine Occult Blood Urine Nitrate Urine Bilirubin Urine Urobilinogen Ur Leukocyte Esterase Urine RBC Urine WBC Ur Squamous Epith Cells Urine Bacteria Ur Culture Indicated? Micro UA Comment Chlamy pneumoniae PCR Adenovirus (PCR) B. pertussis DNA (PCR) B.parapertussis DNA PCR Coronavirus OC43 (PCR) Coronavirus HKU1 (PCR) Coronavirus 229E (PCR) SARS-CoV-2 (PCR) Coronavirus NL63 (PCR) Human Metapneumovir PCR Influenza Type A (PCR) Influenza Type B (PCR) M. pneumoniae (PCR) Parainfluenza 1 (PCR) Parainfluenza 2 (PCR) Parainfluenza 3 (PCR) Parainfluenza 4 (PCR) RSV (PCR) Entero/Rhino (PCR) [facility] Medical History (Updated 08/14/23 @ 21:45 by Alana Curran) BPH (benign prostatic hyperplasia) Chronic atrial fibrillation Hearing loss Hypertension Pneumonia Sleep apnea (~2019) TIA (transient ischemic attack) (~2010) Surgical History (Updated 08/14/23 @ 21:45 by Alana Curran) Anesthesia History of shoulder surgery (~1985) History of surgery (~2018) Status post recent transurethral resection of prostate (~2019) Social History household members: spouse Smoking Status: Former smoker alcohol intake: current Discharge Plan Discharge Plan Patient Disposition: Home Provider Discharge Comment: You were admitted to the hospital with a blood clot and possible pneumonia with a pleural effusion. You are not needing oxygen. It is unclear whether your cough is due to pneumonia, blood clots, or the fluid. The fluid could be due to pnuemonia or your heart as well. It will take some time to elucidate the cause. Discharge orders & Medications Prescriptions: New dabigatran etexilate [Pradaxa] 150 mg capsule 150 mg PO BID 90 Days Qty: 180 0RF amoxicillin-pot clavulanate 875-125 mg tablet 1 tab PO BID 12 Days Qty: 24 0RF Continued indapamide 1.25 mg tablet 1.25 mg PO DAILY clonidine HCl 0.1 mg tablet 0.1 mg PO BID aspirin 81 mg tablet,chewable 81 mg PO DAILY magnesium 200 mg tablet 200 mg PO DAILY multivitamin Tablet 1 tab PO DAILY vitamin B complex Tablet 1 tab PO DAILY cholecalciferol (vitamin D3) 25 mcg (1,000 unit) capsule 25 mcg PO DAILY ascorbate calcium (vitamin C) [Sirisha-C] 1,000 mg PO DAILY vygmbqz-sxrdblccn-ieaw 30 mg PO DAILY Follow up/Referrals: Armando Gay, [Primary Care Provider] - Diet/Activity/Treatments Diet: Diet as Tolerated and Regular Activity: As tolerated, no restrictions Visit Report/Discharge Packet Instructions: DI for Pneumonia -- Adult, DI for Pulmonary Embolism, Dabigatran Stand Alone Forms: Patient Portal/API, Stroke Signs & Symptoms Discharge Data Primary Care Provider: Armando Gay Attending Provider: Juma Adams Admit Date/Time: 08/14/23 11:32 Discharges patient from system. Discharge Date/Time: 08/15/23 11:25 Quality VTE Deep Vein Thrombosis/Pulmonary Embolism Present on Admission: Yes
--- NOTE | 2023-08-15 11:44 | CM.DANOTE ---
Patient is an 83 yo male who was admitted on 08/14/23 for possible Pneumonia and PE. Pt has [facility] and [employer] for insurance and his PCP is Dr. Armando Gay. EMR was reviewed. Per MD, pt with hx of AFIB and TIA and admitted now for management of PE and pneumonia. Per MD, pt now medically stable to d/c home today with outpt f/u and no identified barriers to discharge. SW met bedside with pt and explained role and he confirms he lives in [place] with his spouse and both are very active and independent at baseline. Pt and spouse both drive and do not use DME for ambulation and denies any hx of HH or SNF. Pt already dressed and states his spouse is on her way to provide transport home and pt does not anticipate any needs for discharge and is thankful to discharge home today. Pt has a couple past ED visits but confirms he has not needed to be admitted to the hospital before over the past 12 yrs. Plan: Patient to discharge home today via spouse POV and outpt f/u with PCP and no further d/c needs at this time. SHARRI Orellana Discharge Planning/Care Management CM Discharge Assessment Start: 08/15/23 11:42 Freq: Status: Active Protocol: Document 08/15/23 11:42 BF (Rec: 08/15/23 11:43 BF [id number]) Discharge Planning Assessment Assigned Business Analytics Manager SHARRI Florian DPOA/Assigned Designee Name spouse Parul Contact Information [phone] Advance Directives? No Advance Directives on File No History Provided By Patient,Medical Record Has Patient been admitted in last 30 No days? Prior Living Arrangements House Household Members spouse Type of transporation used prior to Drives own vehicle admit Independent with ADL's Yes Is patient alert and oriented? Yes Caregiver for Another No Barriers to Discharge No Discharge Plan Home Referrals Initiated None needed Whiteboard Updated in Patient Room with Yes name and ext. # of Business Analytics Manager Review Status In Process Please Provide Date Initial DC 08/15/23 Assessment Was Performed Next Review Type Continued Stay Review
== END 2023-08-15 11:25 | disposition home or self-care (01) ==
LOC: ED 11:26 → AC 11:33
PROVIDERS: Admitting Provider Student in an Organized Health Care Education/Training Program; Emergency Provider Emergency Medicine; Family Provider Family Medicine; PCP Family Medicine; Referring Provider Emergency Medicine; Visit Provider Student in an Organized Health Care Education/Training Program
DX: R07.9 Chest pain, unspecified (principal); J18.8 Other pneumonia, unspecified organism; I26.99 Other pulmonary embolism without acute cor pulmonale; I10 Essential (primary) hypertension
CPT/HCPCS: 36415; 71045; 71275; 80048; 80053; 81001; 81241; 83735; 84145; 84484; 85025; 85730; 87633; 93005; 93306; 96365; 96366; 96367; 99284; 99291; G0378; J0696; Q9967

== ENCOUNTER → 2024-10-26 07:29 | Outpatient (CLI) | payer MEDICARE, SELFPAY ==
[2023-08-14 14:00] VITALS: BMI 24.0
[2024-10-26 08:57] LABS: BUN Creatinine Ratio 26.7 (6-22); Blood Urea Nitrogen 35 mg/dL (9-20); Calcium 9.3 mg/dL (8.4-10.2); Carbon Dioxide 28 mmol/L (22-32); Chloride 104 mmol/L (98-107); Estimated Glomerular Filt Rate 53 mL/min (>60); Glucose 100 mg/dL (80-110); HEMOLYSIS < 15 (0-50); Potassium 4.8 mmol/L (3.4-5.1); Sodium 137 mmol/L (137-145)
== END ==
PROVIDERS: Family Provider Family Medicine; PCP Family Medicine; Referring Provider Internal Medicine Cardiovascular Disease; Visit Provider Internal Medicine Cardiovascular Disease
DX: I48.21 Permanent atrial fibrillation (principal); I10 Essential (primary) hypertension
CPT/HCPCS: 36415; 80048

== ENCOUNTER → 2025-04-11 08:12 | Outpatient (CLI) | payer MEDICARE, SELFPAY ==
[2023-08-14 14:00] VITALS: BMI 24.0
--- NOTE | 2025-04-11 08:13 | DI.CT.S_ITS ---
PROCEDURE: CT CHEST WO CON INDICATIONS: f/u lung nodules TECHNIQUE: Noncontrast 5 mm thick sections acquired from the pulmonary apices to the posterior costophrenic angles. 1 mm lung window, 5 mm thick coronal and sagittal and 7 mm axial MIP reformats were then acquired. For radiation dose reduction, the following was used: automated exposure control, adjustment of mA and/or kV according to patient size. COMPARISON: [facility], CT, THORAX^[id number]_PROTOCOL (ADULT), 08/14/2023, 10:36. FINDINGS: Image quality: Diagnostic. Lower Neck: No enlarged lymph nodes. Thyroid: No thyroid nodules which require sonographic follow up, per consensus guidelines. Axillae: No enlarged lymph nodes. Chest Wall: Minimal bilateral gynecomastia. Bones: Postsurgical changes in the right glenoid. Lungs and Pleura: No pneumothorax or pleural effusions. A few calcified granulomas and pulmonary micronodules are again seen and are considered benign. No suspicious new or enlarging pulmonary nodule. Heart: Heart size is normal. No pericardial effusion. Left atrial appendage occlusion device is present. Three-vessel coronary artery calcifications. Thoracic Vessels: The aorta and pulmonary arteries demonstrate normal size. Mediastinum and Kasandra: No enlarged lymph nodes. Esophagus: No wall thickening. No hiatal hernia. Upper Abdomen: Stable subcentimeter hypodensity in the lateral right hepatic lobe, too small to characterize but most likely a cyst. Visualized upper abdomen solid organs and bowel loops appear normal. IMPRESSION: Small benign calcified granulomas and pulmonary micronodules. No suspicious new or enlarging pulmonary nodule. Approved by: Benjamin Wood M.D. on 04/11/2025 at 19:06
--- NOTE | 2025-04-11 08:13 | DI.ECHO.S_ITS ---
[place] +---------+ [facility] : : [address] : : [place] : : [id number] : : Phone: [phone] Echocardiogram Report + + :Name: BERT GARY Study Date: 04/11/2025 Height: 69 in : :[facility] ReadingLocation: Weight: 162 lb : : Gender: Male BSA: 1.9 m2 : :: 1940 Age: 85 yrs BP: 136/78 mmHg: :Reason For Study: EDEMA, WEIGHT GAIN : :Ordering Physician: MARILYN, : :LEFTY Performed By: Markel Olmstead : :Referring: LEFTY SANDERS : + + Interpretation Summary 1. The left ventricular contractility is normal. Estimated ejection fraction is Skinny 55% with no segmental wall motion abnormalities. Mild concentric LVH. Unable to comment on diastolic function. 2. The right ventricular contractility is normal. 3. Severe biatrial enlargement. 4. Mild to moderate mitral regurgitation. 5. Moderate aortic insufficiency. 6. Moderate tricuspid regurgitation with estimated pulmonary systolic artery pressures of 58 mmHg. 7. No obvious intracardiac shunts. 8. No obvious intracardiac masses nor thrombi. 9. No hemodynamically significant pericardial effusion. 10. Low right-sided filling pressures Conclusion: Normal biventricular systolic function with mild to moderate valvular insufficiencies. When compared with previous echocardiogram, there is improvement in the left ventricular systolic function with mild progression of the aortic insufficiency. Procedure: A two-dimensional transthoracic echocardiogram with color flow and Doppler was performed. The study quality was technically good. Comparison is made with the echocardiogram of 08/14/2023. The patient was in normal sinus rhythm during the exam. Left Ventricle: The left ventricle is normal in size. Left ventricular wall thickness is mildly increased. There is no ventricular septal defect visualized. The ejection fraction is estimated to be 55-60%. There are no focal wall motion abnormalities. Diastolic function could not be accurately assessed due to atrial fibrillation. Right Ventricle: The right ventricle is normal in size and function. Atria: There is severe biatrial enlargement. There is no Doppler evidence for an interatrial shunt. Mitral Valve: The mitral valve leaflets appear mildly thickened, but open well. There is mild to moderate mitral regurgitation. Aortic Valve: The aortic valve is trileaflet. The aortic valve opens well. The aortic valve is mildly calcified. There is moderate aortic regurgitation. Tricuspid Valve: The tricuspid valve leaflets are thin and pliable. There is moderate tricuspid regurgitation. The right ventricular systolic pressure is estimated to be at least 58 mmHg based on an estimated right atrial pressure of 3 mm Hg. Pulmonic Valve: The pulmonic valve leaflets are thin and pliable; valve motion is normal. There is no pulmonic valvular regurgitation. Great Vessels: The aortic root is normal size. The ascending aorta is at the upper limits of normal in size. The pulmonary artery is normal size. The IVC is of normal diameter and collapses greater than 50% with a sniff. This suggests a low right atrial pressure of 3 mm Hg. Pericardium/ Pleura There is no pericardial effusion. There is no pleural effusion. MMode/2D Measurements & Calculations LVIDd: 4.7 cm LVOT diam: 1.9 cm LVIDs: 3.1 cm Ao root diam: 3.3 cm FS: 34.2 % asc Aorta Diam: 3.8 cm EPSS: 0.52 cm IVSd: 1.2 cm LVPWd: 1.1 cm LV frank. diameter/BSA (cm/m^2): 2.5 LV sys. diameter/BSA (cm/m^2): 1.6 LA A2 area: 35.4 cm2 RA long axis: 6.6 cm LA A4 area: 39.2 cm2 RA area: 32.0 cm2 LA length (vol): 8.2 cm RA vol: 132.4 ml LA vol: 144.0 ml RA : 70.1 ml/m2 LA vol index: 76.3 ml/m2 IVC diam: 1.6 cm RVD1 (basal): 3.8 cm RVD2 (mid): 3.1 cm TAPSE: 2.4 cm Doppler Measurements & Calculations Ao V2 max: 172.7 cm/sec LVOT Max Luke: 112.6 cm/sec Ao V2 mean: 118.1 cm/sec LV V1 max P.1 mmHg Ao max P.9 mmHg LV V1 VTI: 25.6 cm Ao mean P.3 mmHg BON(I,D): 2.3 cm2 Ao V2 VTI: 32.8 cm BON(V,D): 1.9 cm2 sev ratio: 0.78 BON indexed to BSA (cm^2/m^2): 1.2 AI P1/2t: 340.3 msec AI dec slope: 422.1 cm/sec2 MV E max luke: 89.3 cm/sec TR max luke: 369.1 cm/sec MV A max luke: 24.1 cm/sec TR max P.5 mmHg MV E/A: 3.7 PA V2 max: 110.4 cm/sec Med Peak E' Luke: 6.1 cm/sec PA V2 mean: 70.9 cm/sec E/E' med: 14.8 PA mean P.3 mmHg Lat Peak E' Luke: 9.9 cm/sec PA pr(Accel): 60.2 mmHg E/E' lat: 9.0 E/e' average: 11.9 MV dec time: 0.13 sec SV(LVOT): 74.9 ml Reading Physician:PATT
== END ==
PROVIDERS: Family Provider Family Medicine; PCP Family Medicine; Referring Provider Family Medicine; Visit Provider Family Medicine
DX: I08.3 Combined rheumatic disorders of mitral, aortic and tricuspid valves (principal); I48.20 Chronic atrial fibrillation, unspecified; I25.10 Atherosclerotic heart disease of native coronary artery without angina pectoris; G47.30 Sleep apnea, unspecified; R91.1 Solitary pulmonary nodule; I10 Essential (primary) hypertension
CPT/HCPCS: 71250; 93306